=== PATIENT | female | born 1930 | race Caucasian/White ===

== ENCOUNTER 2017-07-29 22:12 | Inpatient (IN) | payer OTHER, BC, MEDICAID ==
[~2017-07-29] VITALS: Ht 167.6 cm; Wt 74.8 kg
[~2017-07-29 22:12] MED LIST: BACL10TA4 PO; CEFT1PDS43 IV; FURO-570 PO; MULT-2173 PO; [UNRECOGNIZED DRUG - CODE] PO; [UNRECOGNIZED DRUG - CODE] PO; [UNRECOGNIZED DRUG - CODE] TP; [UNRECOGNIZED DRUG - CODE] TP
[2017-07-29 22:15] VITALS: BP 138/67
[2017-07-29] MEDS ORDERED: NACL 0.9% 2,000 ML IV ONE (22:20)
[2017-07-29] MEDS ORDERED: VANCOMYCIN 1,000 MG in DEXTROSE 5% 250 ML IV ONE (22:35)
[2017-07-29] MEDS ORDERED: MEROPENEM 1,000 MG in NACL 0.9% 100 ML IV ONE (22:35)
[2017-07-29] MEDS ORDERED: MEROPENEM 1,000 MG VIAL IV ONE (22:41)
[2017-07-29] MEDS ORDERED: VANCOMYCIN 1,000 MG VIAL ONE (22:41)
[2017-07-29] MEDS ORDERED: ASCO-770 GT (22:54)
[2017-07-29] MEDS ORDERED: COL100L GT (22:54)
[2017-07-29] MEDS ORDERED: MULT15LI1 GT (22:54)
[2017-07-29] MEDS ORDERED: NUTR30LI3 GT (22:54)
[2017-07-29] MEDS ORDERED: LORazepam 2 MG/ML VIAL IVP ONE ×2 (22:55→23:15)
[2017-07-29] MEDS ORDERED: LORazepam 2 MG/ML VIAL ONE ×2 (22:56→23:19)
[2017-07-29 23:03] LABS: BASOPHILS # (AUTO) 0.1 K/uL (0.00-0.22); BASOPHILS % (AUTO) 0.9 % (0.0-2.0); EOSINOPHILS # (AUTO) 0.2 K/uL (0-0.4); EOSINOPHILS % (AUTO) 2.4 % (0.0-4.0); HEMOGLOBIN 14.9 g/dL (12.0-16.0); LYMPHOCYTES # (AUTO) 1.3 K/uL (2.5-16.5); LYMPHOCYTES % (AUTO) 14.6 % (20.5-51.1); MEAN CORPUSCULAR HEMOGLOBIN 33 pg (27-31); MEAN CORPUSCULAR HGB CONC 33 g/dL (33-37); MEAN CORPUSCULAR VOLUME 98.2 fL (80-94); MONOCYTES # (AUTO) 0.7 K/uL (0.8-1.0); MONOCYTES % (AUTO) 7.7 % (1.7-9.3); NEUTROPHILS # (AUTO) 6.9 K/uL (1.8-7.7); NEUTROPHILS % (AUTO) 74.4 % (42.2-75.2); PLATELET COUNT (AUTO) 204 K/uL (140-450); RED BLOOD CELL COUNT(AUTO) 4.58 MIL/uL (4.20-5.40); RED CELL DISTRIBUTION WIDTH 13.7 % (11.6-13.7); WHITE BLOOD COUNT (AUTO) 9.2 K/uL (4.8-10.8)
[2017-07-29] MEDS ORDERED: diphenhydrAMINE 50 MG/ML VIAL IM ONE (23:05)
[2017-07-29] MEDS ORDERED: HALOPERIDOL IM 5 MG/ML VIAL IM ONE (23:05)
[2017-07-29] MEDS ORDERED: HALOPERIDOL IM 5 MG/ML VIAL ONE (23:06)
[2017-07-29] MEDS ORDERED: diphenhydrAMINE 50 MG/ML VIAL ONE (23:07)
[2017-07-29] MEDS ORDERED: LEVOFLOXACIN 750 MG/D5W PREMIX 150 ML IV ONE (23:10)
[2017-07-29] MEDS ORDERED: MORPHINE SULFATE 2 MG/ML SYR IVP ONE (23:15)
[2017-07-29 23:26] LABS: ANION GAP 12.2 (8-16); CARBON DIOXIDE 28.8 mmol/L (21-32); CHLORIDE 101 mmol/L (98-107); CREATININE 0.6 mg/dL (0.6-1.3); GLUCOSE 139 mg/dL (74-106); SODIUM SERUM 138 mmol/L (136-145); UREA NITROGEN, BLOOD 25 mg/dL (7-18)
[2017-07-29 23:31] LABS: ASPARTATE AMINOTRANSFERASE 39 U/L (15-37); TOTAL BILIRUBIN 0.5 mg/dL (0.0-1.0)
[2017-07-30 00:19] LABS: APPEARANCE,URINE CLOUDY (CLEAR); BILIRUBIN,URINE NEGATIVE (NEGATIVE); BLOOD, URINE 2+ (NEGATIVE); COLOR,URINE YELLOW (YELLOW); LEUKOCYTE ESTERASE ,URINE 3+ (NEGATIVE); NITRITE, URINE NEGATIVE (NEGATIVE); PH,URINE 7.5 (5.0-9.0); UGLUCOSE NEGATIVE (NEGATIVE)
[2017-07-30 00:20] LABS: RBC,URINE TOO NUMEROUS TO COUN /HPF (0-5); WBC,URINE TOO MANY TO COUNT /HPF (0-5)
[2017-07-30] MEDS ORDERED: DIGOXIN 0.125 MG/2.5 ML UDC GT SCH ×2 (00:30→09:00)
[2017-07-30] MEDS ORDERED: METOPROLOL 5 MG/5 ML VIAL IVP SCH (03:00)
[2017-07-30 04:00] VITALS: BP 92/66
[2017-07-30 08:00] VITALS: BP 110/72
[2017-07-30 08:08] LABS: BASOPHILS # (AUTO) 0.1 K/uL (0.00-0.22); BASOPHILS % (AUTO) 0.9 % (0.0-2.0); EOSINOPHILS # (AUTO) 0.3 K/uL (0-0.4); EOSINOPHILS % (AUTO) 3.6 % (0.0-4.0); HEMATOCRIT 39.7 % (36-48); HEMOGLOBIN 13.2 g/dL (12.0-16.0); LYMPHOCYTES # (AUTO) 1.1 K/uL (2.5-16.5); LYMPHOCYTES % (AUTO) 15.5 % (20.5-51.1); MEAN CORPUSCULAR HEMOGLOBIN 33 pg (27-31); MEAN CORPUSCULAR HGB CONC 33 g/dL (33-37); MEAN CORPUSCULAR VOLUME 98.3 fL (80-94); MONOCYTES # (AUTO) 0.8 K/uL (0.8-1.0); MONOCYTES % (AUTO) 10.5 % (1.7-9.3); NEUTROPHILS # (AUTO) 5.1 K/uL (1.8-7.7); NEUTROPHILS % (AUTO) 69.5 % (42.2-75.2); PLATELET COUNT (AUTO) 184 K/uL (140-450); RED BLOOD CELL COUNT(AUTO) 4.03 MIL/uL (4.20-5.40); RED CELL DISTRIBUTION WIDTH 13.5 % (11.6-13.7); WHITE BLOOD COUNT (AUTO) 7.4 K/uL (4.8-10.8)
[2017-07-30] MEDS: POTASSIUM CHL 10 MEQ/D5-1/2NS 1,000 ML IV SCH (08:30)
[2017-07-30 08:33] LABS: ALBUMIN 2.5 g/dL (3.4-5.0); ANION GAP 10.4 (8-16); ASPARTATE AMINOTRANSFERASE 27 U/L (15-37); CARBON DIOXIDE 26.3 mmol/L (21-32); CHLORIDE 105 mmol/L (98-107); CREATININE 0.6 mg/dL (0.6-1.3); GLUCOSE 96 mg/dL (74-106); MAGNESIUM 2.1 mg/dL (1.8-2.4); POTASSIUM 3.7 mmol/L (3.5-5.1); SODIUM SERUM 138 mmol/L (136-145); THYROID STIMULATING HORMONE 10.25 uIU/mL (0.34-3.74); TOTAL BILIRUBIN 0.5 mg/dL (0.0-1.0); UREA NITROGEN, BLOOD 23 mg/dL (7-18)
[2017-07-30] MEDS: DOCUSATE 100 MG/10 ML UDC GT SCH (08:49)
[2017-07-30] MEDS: DIGOXIN 0.125 MG/2.5 ML UDC GT SCH (08:51)
[2017-07-30] MEDS: APIXABAN 2.5 MG TAB PO SCH ×2 (08:54→20:31)
[2017-07-30 12:00] VITALS: BP 153/97
[2017-07-30 16:00] VITALS: BP 129/80
[2017-07-30 20:00] VITALS: BP 103/67
[2017-07-30] MEDS: LEVOFLOXACIN 500 MG/D5W PREMIX 100 ML IV SCH (20:27)
[2017-07-30] MEDS: BACLOFEN 10 MG TAB PO SCH (20:29)
[2017-07-31] VITALS: BP 122/78
[2017-07-31 04:00] VITALS: BP 147/77
[2017-07-31] MEDS: POTASSIUM CHL 10 MEQ/D5-1/2NS 1,000 ML IV SCH (05:55)
[2017-07-31 07:16] LABS: BASOPHILS % (AUTO) 0.3 % (0.0-2.0); EOSINOPHILS # (AUTO) 0.2 K/uL (0-0.4); HEMATOCRIT 45.2 % (36-48); HEMOGLOBIN 14.9 g/dL (12.0-16.0); LYMPHOCYTES # (AUTO) 1.1 K/uL (2.5-16.5); LYMPHOCYTES % (AUTO) 13.9 % (20.5-51.1); MEAN CORPUSCULAR HEMOGLOBIN 33 pg (27-31); MEAN CORPUSCULAR HGB CONC 33 g/dL (33-37); MEAN CORPUSCULAR VOLUME 98.7 fL (80-94); MONOCYTES # (AUTO) 0.8 K/uL (0.8-1.0); MONOCYTES % (AUTO) 9.8 % (1.7-9.3); PLATELET COUNT (AUTO) 201 K/uL (140-450); RED BLOOD CELL COUNT(AUTO) 4.58 MIL/uL (4.20-5.40); RED CELL DISTRIBUTION WIDTH 13.5 % (11.6-13.7); WHITE BLOOD COUNT (AUTO) 8.3 K/uL (4.8-10.8)
[2017-07-31 07:51] LABS: ALBUMIN 2.6 g/dL (3.4-5.0); ANION GAP 6.2 (8-16); ASPARTATE AMINOTRANSFERASE 35 U/L (15-37); CARBON DIOXIDE 30.9 mmol/L (21-32); CHLORIDE 102 mmol/L (98-107); CREATININE 0.6 mg/dL (0.6-1.3); GLUCOSE 107 mg/dL (74-106); POTASSIUM 4.1 mmol/L (3.5-5.1); SODIUM SERUM 135 mmol/L (136-145); TOTAL BILIRUBIN 0.5 mg/dL (0.0-1.0); UREA NITROGEN, BLOOD 20 mg/dL (7-18)
[2017-07-31 08:00] VITALS: BP 151/76
[2017-07-31] MEDS: DOCUSATE 100 MG/10 ML UDC GT SCH (09:00)
[2017-07-31] MEDS: DIGOXIN 0.125 MG/2.5 ML UDC GT SCH (09:43)
[2017-07-31] MEDS: APIXABAN 2.5 MG TAB PO SCH ×2 (09:45→22:11)
[2017-07-31] MEDS: MORPHINE SULFATE 2 MG/ML SYR IVP PRN ×2 (11:23→22:09)
[2017-07-31 12:00] VITALS: BP 155/73
[2017-07-31 16:00] VITALS: BP 127/79
[2017-07-31 20:00] VITALS: BP 143/60
[2017-07-31] MEDS: LEVOFLOXACIN 500 MG/D5W PREMIX 100 ML IV SCH (22:10)
[2017-07-31] MEDS: BACLOFEN 10 MG TAB PO SCH (22:10)
[2017-08-01] VITALS: BP 144/61
[2017-08-01] MEDS: POTASSIUM CHL 10 MEQ/D5-1/2NS 1,000 ML IV SCH (03:10)
[2017-08-01] MEDS: MORPHINE SULFATE 2 MG/ML SYR IVP PRN ×3 (03:43→23:04)
[2017-08-01 04:00] VITALS: BP 144/73
[2017-08-01 08:00] VITALS: BP 141/84
[2017-08-01] MEDS: DOCUSATE 100 MG/10 ML UDC GT SCH (08:48)
[2017-08-01] MEDS: DIGOXIN 0.125 MG/2.5 ML UDC GT SCH (08:49)
[2017-08-01] MEDS: APIXABAN 2.5 MG TAB PO SCH ×2 (08:52→20:26)
[2017-08-01 12:00] VITALS: BP 140/64
[2017-08-01] MEDS ORDERED: ALBUTEROL SULFATE/IPRATROPIU 3 ML SOL IH PRN (12:45)
[2017-08-01] MEDS ORDERED: IPRATROPIUM 0.02% 0.5 MG/2.5 ML NEBU INH PRN (12:45)
[2017-08-01] MEDS ORDERED: ROC2I IV (13:29)
[2017-08-01] MEDS ORDERED: APIX5TAB PO (14:23)
[2017-08-01] MEDS ORDERED: [UNRECOGNIZED DRUG - CODE] PO (14:25)
[2017-08-01] MEDS ORDERED: COMMUNICATION ORDER MC SCH (15:05)
[2017-08-01] MEDS ORDERED: METOPROLOL 5 MG/5 ML VIAL IVP SCH (15:08)
[2017-08-01 16:00] VITALS: BP 128/68
[2017-08-01 20:00] VITALS: BP 111/43
[2017-08-01] MEDS ORDERED: DIGOXIN 0.25 MG TAB GT SCH (20:00)
[2017-08-01] MEDS: BACLOFEN 10 MG TAB PO SCH (20:22)
[2017-08-02] VITALS: BP 124/68
[2017-08-02 04:00] VITALS: BP 92/48
[2017-08-02 07:27] LABS: HEMATOCRIT 37.3 % (36-48); HEMOGLOBIN 12.4 g/dL (12.0-16.0); MEAN CORPUSCULAR HEMOGLOBIN 33 pg (27-31); MEAN CORPUSCULAR HGB CONC 33 g/dL (33-37); MEAN CORPUSCULAR VOLUME 98.1 fL (80-94); PLATELET COUNT (AUTO) 191 K/uL (140-450); RED CELL DISTRIBUTION WIDTH 13.6 % (11.6-13.7)
[2017-08-02 07:35] LABS: ANION GAP 9.6 (8-16); CARBON DIOXIDE 30.9 mmol/L (21-32); CHLORIDE 101 mmol/L (98-107); CREATININE 0.8 mg/dL (0.6-1.3); GLUCOSE 142 mg/dL (74-106); POTASSIUM 4.5 mmol/L (3.5-5.1); SODIUM SERUM 137 mmol/L (136-145); UREA NITROGEN, BLOOD 24 mg/dL (7-18)
[2017-08-02 08:18] LABS: WHITE BLOOD COUNT (AUTO) 32.6 K/uL (4.8-10.8)
[2017-08-02 08:20] LABS: LYMPHOCYTES % (MANUAL) 9 % (20-46); MONOCYTES % (MANUAL) 3 % (5-12)
[2017-08-02 09:03] VITALS: BP 94/42
[2017-08-02] MEDS: DOCUSATE 100 MG/10 ML UDC GT SCH (09:06)
[2017-08-02] MEDS: DIGOXIN 0.125 MG/2.5 ML UDC GT SCH (09:06)
[2017-08-02] MEDS: APIXABAN 2.5 MG TAB PO SCH ×2 (09:07→21:50)
[2017-08-02] MEDS ORDERED: AMIKACIN PER PHARMACY MC PRN (09:40)
[2017-08-02 12:00] VITALS: BP 92/45
[2017-08-02] MEDS ORDERED: AMIKACIN 350 MG in DEXTROSE 5% 100 ML IV SCH (12:00)
[2017-08-02] MEDS: MEROPENEM 500 MG in NACL 0.9% 50 ML IV SCH ×2 (13:26→21:51)
[2017-08-02 16:00] VITALS: BP 98/54
[2017-08-02 20:00] VITALS: BP 97/59
[2017-08-02] MEDS: BACLOFEN 10 MG TAB PO SCH (21:49)
[2017-08-02] MEDS: POLYETHYLENE GLYCOL 17 GM/PKT GT SCH (21:51)
[2017-08-03] VITALS: BP 121/68
[2017-08-03 04:00] VITALS: BP 118/60
[2017-08-03] MEDS: MEROPENEM 500 MG in NACL 0.9% 50 ML IV SCH ×3 (05:05→21:27)
[2017-08-03 08:00] VITALS: BP 110/70
[2017-08-03] MEDS: DOCUSATE 100 MG/10 ML UDC GT SCH (09:10)
[2017-08-03] MEDS: DIGOXIN 0.125 MG/2.5 ML UDC GT SCH (09:10)
[2017-08-03] MEDS: POLYETHYLENE GLYCOL 17 GM/PKT GT SCH ×2 (09:11→21:27)
[2017-08-03 09:17] LABS: BASOPHILS # (AUTO) 0.1 K/uL (0.00-0.22); BASOPHILS % (AUTO) 0.4 % (0.0-2.0); EOSINOPHILS # (AUTO) 0.2 K/uL (0-0.4); EOSINOPHILS % (AUTO) 1.4 % (0.0-4.0); HEMATOCRIT 34.9 % (36-48); HEMOGLOBIN 11.6 g/dL (12.0-16.0); LYMPHOCYTES # (AUTO) 1.1 K/uL (2.5-16.5); LYMPHOCYTES % (AUTO) 8.5 % (20.5-51.1); MEAN CORPUSCULAR HEMOGLOBIN 33 pg (27-31); MEAN CORPUSCULAR HGB CONC 33 g/dL (33-37); MEAN CORPUSCULAR VOLUME 98.1 fL (80-94); MONOCYTES # (AUTO) 0.7 K/uL (0.8-1.0); MONOCYTES % (AUTO) 5.6 % (1.7-9.3); NEUTROPHILS # (AUTO) 11.2 K/uL (1.8-7.7); NEUTROPHILS % (AUTO) 84.1 % (42.2-75.2); PLATELET COUNT (AUTO) 152 K/uL (140-450); RED BLOOD CELL COUNT(AUTO) 3.56 MIL/uL (4.20-5.40); RED CELL DISTRIBUTION WIDTH 13.2 % (11.6-13.7); WHITE BLOOD COUNT (AUTO) 13.3 K/uL (4.8-10.8)
[2017-08-03] MEDS: APIXABAN 2.5 MG TAB PO SCH ×2 (09:20→21:33)
[2017-08-03 09:31] LABS: ANION GAP 6.6 (8-16); CARBON DIOXIDE 31.6 mmol/L (21-32); CHLORIDE 102 mmol/L (98-107); CREATININE 0.6 mg/dL (0.6-1.3); GLUCOSE 143 mg/dL (74-106); POTASSIUM 4.2 mmol/L (3.5-5.1); SODIUM SERUM 136 mmol/L (136-145); UREA NITROGEN, BLOOD 22 mg/dL (7-18)
[2017-08-03 12:00] VITALS: BP 114/60
[2017-08-03 16:00] VITALS: BP 112/66
[2017-08-03 20:00] VITALS: BP 130/70
[2017-08-03] MEDS: BACLOFEN 10 MG TAB PO SCH (21:27)
[2017-08-04] VITALS: BP 123/60
[2017-08-04] MEDS: MORPHINE SULFATE 2 MG/ML SYR IVP PRN ×2 (03:35→21:31)
[2017-08-04 04:00] VITALS: BP 121/66
[2017-08-04] MEDS: MEROPENEM 500 MG in NACL 0.9% 50 ML IV SCH ×3 (04:55→21:30)
[2017-08-04 08:00] VITALS: BP 114/70
[2017-08-04] MEDS: POLYETHYLENE GLYCOL 17 GM/PKT GT SCH ×3 (09:05→21:30)
[2017-08-04] MEDS: DIGOXIN 0.125 MG/2.5 ML UDC GT SCH (09:06)
[2017-08-04] MEDS: DOCUSATE 100 MG/10 ML UDC GT SCH (09:06)
[2017-08-04] MEDS: APIXABAN 2.5 MG TAB PO SCH ×2 (09:16→21:32)
[2017-08-04 09:30] LABS: BASOPHILS % (AUTO) 0.5 % (0.0-2.0); EOSINOPHILS # (AUTO) 0.2 K/uL (0-0.4); EOSINOPHILS % (AUTO) 2.8 % (0.0-4.0); HEMATOCRIT 36.8 % (36-48); HEMOGLOBIN 12.2 g/dL (12.0-16.0); LYMPHOCYTES # (AUTO) 0.9 K/uL (2.5-16.5); LYMPHOCYTES % (AUTO) 13.6 % (20.5-51.1); MEAN CORPUSCULAR HEMOGLOBIN 33 pg (27-31); MEAN CORPUSCULAR HGB CONC 33 g/dL (33-37); MEAN CORPUSCULAR VOLUME 97.6 fL (80-94); MONOCYTES # (AUTO) 0.6 K/uL (0.8-1.0); MONOCYTES % (AUTO) 8.8 % (1.7-9.3); NEUTROPHILS # (AUTO) 4.8 K/uL (1.8-7.7); NEUTROPHILS % (AUTO) 74.3 % (42.2-75.2); PLATELET COUNT (AUTO) 157 K/uL (140-450); RED BLOOD CELL COUNT(AUTO) 3.77 MIL/uL (4.20-5.40); RED CELL DISTRIBUTION WIDTH 13.1 % (11.6-13.7); WHITE BLOOD COUNT (AUTO) 6.5 K/uL (4.8-10.8)
[2017-08-04 09:50] LABS: CARBON DIOXIDE 30.3 mmol/L (21-32); CHLORIDE 102 mmol/L (98-107); CREATININE 0.5 mg/dL (0.6-1.3); GLUCOSE 146 mg/dL (74-106); POTASSIUM 4.3 mmol/L (3.5-5.1); SODIUM SERUM 135 mmol/L (136-145); UREA NITROGEN, BLOOD 17 mg/dL (7-18)
[2017-08-04] MEDS ORDERED: MER500I IV (10:37)
[2017-08-04 12:00] VITALS: BP 146/92
[2017-08-04 16:00] VITALS: BP 118/71
[2017-08-04 20:00] VITALS: BP 111/82
[2017-08-04] MEDS: BACLOFEN 10 MG TAB PO SCH (21:31)
[2017-08-05] VITALS: BP 111/72
[2017-08-05 04:00] VITALS: BP 115/75
[2017-08-05] MEDS: MEROPENEM 500 MG in NACL 0.9% 50 ML IV SCH ×2 (04:05→12:54)
[2017-08-05 08:00] VITALS: BP 95/42
[2017-08-05] MEDS: DIGOXIN 0.125 MG/2.5 ML UDC GT SCH (08:41)
[2017-08-05] MEDS: APIXABAN 2.5 MG TAB PO SCH (08:43)
[2017-08-05] MEDS: DOCUSATE 100 MG/10 ML UDC GT SCH (08:43)
[2017-08-05 12:00] VITALS: BP 96/54
[2017-08-05 16:00] VITALS: BP 113/68
== END 2017-08-05 17:30 | DRG 871 ==
LOC: MED 22:12 → MTU 23:18
PROVIDERS: ADMIT Family Medicine; ATTEND Family Medicine
DX: A41.9 Sepsis, unspecified organism (principal); J96.01 Acute respiratory failure with hypoxia; J18.9 Pneumonia, unspecified organism; E44.0 Moderate protein-calorie malnutrition; N39.0 Urinary tract infection, site not specified; I48.91 Unspecified atrial fibrillation; J40 Bronchitis, not specified as acute or chronic; Z66 Do not resuscitate; B96.20 Unspecified Escherichia coli [E. coli] as the cause of diseases classified elsewhere; Z16.12 Extended spectrum beta lactamase (ESBL) resistance; Z82.3 Family history of stroke; Z86.73 Personal history of transient ischemic attack (TIA), and cerebral infarction without residual deficits; Z87.891 Personal history of nicotine dependence; Z88.0 Allergy status to penicillin; Z93.1 Gastrostomy status; Z74.01 Bed confinement status; G30.9 Alzheimer's disease, unspecified; F02.80 Dementia in other diseases classified elsewhere, unspecified severity, without behavioral disturbance, psychotic disturbance, mood disturbance, and anxiety; E86.0 Dehydration; Z68.26 Body mass index [BMI] 26.0-26.9, adult; R54 Age-related physical debility
CPT/HCPCS: 36415; 71045; 80048; 80053; 80162; 81001; 83605; 83735; 84443; 85025; 87040; 87081; 87086; 87186; 93005; 94640; 96365; 96368; 96372; 96375; 96376; 99291; C1758; J0278; J0696; J1200; J1630; J1956; J2060; J2185; J2270; J3370; J3490; J7060; J7620; Q0092

== ENCOUNTER 2018-01-10 03:48 | Inpatient (IN) | payer OTHER, BC ==
[~2018-01-10] VITALS: Ht 167.6 cm; Wt 67.1 kg
[~2018-01-10 03:48] MED LIST changes: +APIX5TAB PO; +ASCO-770 GT; -CEFT1PDS43 IV; +COL100L GT; +MER500I IV; +MULT15LI1 GT; +NUTR30LI3 GT; +[UNRECOGNIZED DRUG - CODE] PO
[2018-01-10] MEDS ORDERED: MORPHINE SULFATE 4 MG/ML SYR IVP ONE ×3 (03:50→05:10)
[2018-01-10 04:10] VITALS: BP 129/81
[2018-01-10] MEDS ORDERED: MORPHINE SULFATE 4 MG/ML SYR ONE (04:35)
[2018-01-10] MEDS ORDERED: NACL 0.9% 500 ML IV ONE (05:10)
[2018-01-10] MEDS ORDERED: ONDANSETRON 4 MG/2 ML VIAL IM/IVP PRN (05:40)
[2018-01-10] MEDS ORDERED: ZOLPIDEM 5 MG TAB PO PRN (05:40)
[2018-01-10] MEDS ORDERED: ACETAMINOPHEN 325 MG TAB PO PRN (05:40)
[2018-01-10] MEDS ORDERED: DOCUSATE SODIUM 100 MG GELCAP PO PRN (05:40)
[2018-01-10] MEDS ORDERED: NACL 0.9% 1,000 ML IV SCH (05:40)
[2018-01-10] MEDS ORDERED: HYDROcodone/APAP 5/325 MG 1 TAB TAB PO PRN (05:40)
[2018-01-10] MEDS ORDERED: LORazepam 2 MG/ML VIAL IM/IVP PRN (05:40)
[2018-01-10] MEDS ORDERED: DILTIAZEM 25 MG/5 ML VIAL IVP SCH (06:45)
[2018-01-10] MEDS ORDERED: BACL10TA4 GT (06:47)
[2018-01-10] MEDS ORDERED: APIX5TAB GT (06:47)
[2018-01-10] MEDS: NACL 0.9% 500 ML IV SCH ×2 (07:20→08:24)
[2018-01-10 08:00] VITALS: BP 80/45
[2018-01-10 08:17] LABS: HEMOGLOBIN 13.2 g/dL (12.0-16.0); MEAN CORPUSCULAR HEMOGLOBIN 32 pg (27-31); MEAN CORPUSCULAR HGB CONC 32 g/dL (33-37); MEAN CORPUSCULAR VOLUME 100.8 fL (80-94); PLATELET COUNT (AUTO) 171 K/uL (140-450); RED BLOOD CELL COUNT(AUTO) 4.07 MIL/uL (4.20-5.40); RED CELL DISTRIBUTION WIDTH 13.2 % (11.6-13.7); WHITE BLOOD COUNT (AUTO) 15.5 K/uL (4.8-10.8)
[2018-01-10 08:32] LABS: LYMPHOCYTES % (MANUAL) 4 % (20-46); MONOCYTES % (MANUAL) 6 % (5-12)
[2018-01-10] MEDS ORDERED: MORPHINE SULFATE 4 MG/ML SYR IVP PRN (08:40)
[2018-01-10 08:57] LABS: PROTHROMBIN TIME 12.8 secs (10.8-13.4)
[2018-01-10 09:05] LABS: ALBUMIN 2.4 g/dL (3.4-5.0); ANION GAP 16.3 (8-16); ASPARTATE AMINOTRANSFERASE 385 U/L (15-37); CARBON DIOXIDE 23.3 mmol/L (21-32); CHLORIDE 106 mmol/L (98-107); CHOL/HDL RATIO 1.8 (1-4.5); CREATININE 1.4 mg/dL (0.6-1.3); GLUCOSE 119 mg/dL (74-106); HDL CHOLESTEROL 41 mg/dL (40-60); LDL (CALC) 14 mg/dL (60-100); LIPASE 48 U/L (73-393); MAGNESIUM 2.3 mg/dL (1.8-2.4); PHOSPHORUS 3.6 mg/dL (2.5-4.9); SODIUM SERUM 143 mmol/L (136-145); THYROID STIMULATING HORMONE 31.11 uIU/mL (0.34-3.74); TOTAL BILIRUBIN 2.1 mg/dL (0.0-1.0); TRIGLYCERIDES 90 mg/dL (30-150); UREA NITROGEN, BLOOD 47 mg/dL (7-18)
[2018-01-10 10:54] LABS: POTASSIUM 2.6 mmol/L (3.5-5.1)
[2018-01-10 12:00] VITALS: BP 53/36
[2018-01-10] MEDS ORDERED: POTASSIUM CHLORIDE 20% 40 MEQ/15 ML UDC GT SCH (12:30)
[2018-01-10] MEDS ORDERED: PIPER/TAZO 3.375GM/D5W PREMIX 50 ML IV SCH (13:00)
[2018-01-10] MEDS ORDERED: HYOSCYAMINE 0.125 MG TAB PO PRN (13:30)
[2018-01-10] MEDS ORDERED: SCOPOLAMINE 1.5 MG/72 HR PATCH TD SCH (13:50)
[2018-01-10] MEDS ORDERED: LORazepam 2 MG/ML VIAL IVP SCH ×2 (14:00→15:30)
[2018-01-10] MEDS: MORPHINE SULFATE 50 MG in NACL 0.9% 45 ML IV PRN ×2 (15:00→17:46)
[2018-01-10 16:00] VITALS: BP 64/40
[2018-01-10] MEDS ORDERED: LORazepam 2 MG/ML VIAL IVP PRN (16:15)
[2018-01-10] MEDS ORDERED: NON-FORMULARY ITEM (Apixaban (Eliquis) 5 MG) GT SCH (21:00)
[2018-01-10] MEDS ORDERED: BACLOFEN 10 MG TAB GT SCH (21:00)
[2018-01-10] MEDS ORDERED: APIXABAN 2.5 MG TAB PO SCH (21:00)
[2018-01-11] MEDS ORDERED: ASCORBIC ACID GT SCH (09:00)
[2018-01-11] MEDS ORDERED: [UNRECOGNIZED DRUG - OTHER] GT SCH (09:00)
[2018-01-11] MEDS ORDERED: ASCORBIC ACID 500 MG/5 ML ORASYR GT SCH (09:00)
[2018-01-11] MEDS ORDERED: ASCORBATE SODIUM GT SCH (09:00)
[2018-01-11] MEDS ORDERED: DIGOXIN 0.125 MG PO SCH (09:00)
[2018-01-11] MEDS ORDERED: DOCUSATE 100 MG/10 ML UDC GT SCH (09:00)
[2018-01-11] MEDS ORDERED: FUROSEMIDE 40 MG TAB PO SCH (09:00)
== END 2018-01-10 18:25 | disposition expired | DRG 871 ==
LOC: MED 03:48 → MIC 05:40 → MTU 15:45
PROVIDERS: ADMIT General Practice; ATTEND General Practice
DX: A41.9 Sepsis, unspecified organism (principal); R65.21 Severe sepsis with septic shock; J96.21 Acute and chronic respiratory failure with hypoxia; N17.0 Acute kidney failure with tubular necrosis; N39.0 Urinary tract infection, site not specified; I48.91 Unspecified atrial fibrillation; I46.9 Cardiac arrest, cause unspecified; Z66 Do not resuscitate; I10 Essential (primary) hypertension; I25.10 Atherosclerotic heart disease of native coronary artery without angina pectoris; G30.9 Alzheimer's disease, unspecified; F02.80 Dementia in other diseases classified elsewhere, unspecified severity, without behavioral disturbance, psychotic disturbance, mood disturbance, and anxiety; E87.6 Hypokalemia; Z51.5 Encounter for palliative care; Z88.0 Allergy status to penicillin; Z79.01 Long term (current) use of anticoagulants; Z79.899 Other long term (current) drug therapy; Z86.73 Personal history of transient ischemic attack (TIA), and cerebral infarction without residual deficits; Z93.1 Gastrostomy status; Z90.49 Acquired absence of other specified parts of digestive tract
CPT/HCPCS: 36415; 71045; 80053; 83036; 83690; 83735; 84100; 84134; 84443; 85025; 85610; 85730; 87081; 96361; 96374; 96376; 99285; J2060; J2270; J3490; J7030; Q0092